=== PATIENT | male | born 1985 | race Caucasian/White ===

== ENCOUNTER 2019-06-19 07:35 | Day surgery (SDC) | payer BC ==
[2019-06-14 08:34] LABS: BASOPHILS 0.5 % (0-2); EOSINOPHILS 3.1 % (0-7); HEMATOCRIT 43.1 % (42.0-54.0); HEMOGLOBIN 15.5 g/dL (13.5-17.5); IMMATURE GRANULOCYTES 0.2 % (0-5); LYMPHOCYTES 34.4 % (15-50); MCH 34.1 pg (26.0-34.0); MCV 94.9 fL (80.0-100.0); MEAN PLATELET VOLUME 9.7 fL (7.4-10.4); MONOCYTES 5.5 % (2-11); NEUTROPHILS 56.3 % (40-80); PLATELET COUNT 233 10x3/uL (130-400); RBC 4.54 10x6/uL (4.20-6.10); RDW 12.2 % (11.5-14.5); WBC 4.2 10x3/uL (4.8-10.8)
[2019-06-14 08:40] LABS: CALC OSMOLALITY 286 mosm/kg (275-300); CALCIUM 8.6 mg/dL (8.5-10.1); CARBON DIOXIDE 27.9 mmol/L (21.0-32.0); CHLORIDE - SERUM 107 mmol/L (98-107); CREATININE - SERUM 0.9 mg/dL (0.6-1.3); GLUCOSE 103 mg/dL (74-106); POTASSIUM - SERUM 4.4 mmol/L (3.5-5.1); SODIUM 143 mmol/L (136-145); UREA NITROGEN 17 mg/dL (7-18); eGFR NON AFRICAN AMERICAN > 90 mL/min (90-120)
[~2019-06-19] VITALS: Ht 172.7 cm; Wt 61.2 kg
[2019-06-19 08:32] VITALS: BP 130/77; Ht 172.7 cm; Wt 61.2 kg
--- NOTE | 2019-06-19 11:12 | NUR ---
CARE TRANSFERRED TO ALEX PEREZ RN
--- NOTE | 2019-06-19 11:14 | NUR ---
CARE ASSUMED FROM VIRGIL MEDINA RN
== END 2019-06-19 12:45 | disposition home or self-care (01) ==
LOC: D.OPS 07:35 → D.PAN 10:00 → D.OPS 12:45
PROVIDERS: ATTEND Orthopaedic Surgery
DX: M67.431 Ganglion, right wrist (principal); Z01.812 Encounter for preprocedural laboratory examination

== ENCOUNTER → 2020-04-20 12:12 | Outpatient (CLI) | payer BC ==
[2019-06-19 08:32] VITALS: BMI 20.5
== END | disposition home or self-care (01) ==
LOC: D.CT 12:12
PROVIDERS: ATTEND Clinical Nurse Specialist Family Health
DX: M25.532 Pain in left wrist (principal)